=== PATIENT | male | born 1995 | race Caucasian/White ===

== ENCOUNTER 2017-10-15 12:55 | Emergency (ER) | payer OTHER ==
[2017-10-15 13:12] VITALS: BP 150/83; PULSE 60; TEMP 98.3; BMI 25.8
--- NOTE | 2017-10-15 14:54 | PDOC ---
History of Present Illness - General Chief Complaint: Injury Stated Complaint: LACERATION Time Seen by Provider: 10/15/17 14:45 History Source: Patient Exam Limitations: No Limitations - History of Present Illness Initial Comments: CHIEF COMPLAINT: 22 y/o male c/o left middle finger laceration. HISTORY OF PRESENT ILLNESS: The patient states he cut the tip of his left middle finger off with a saw at work. He states he is UTD on tetanus - he had the shot 3 years ago. He denies numbness/tingling and decreased ROM. Past History - Past Medical History Allergies/Adverse Reactions: Allergies Allergy/AdvReac Type Severity Reaction Status Date / Time No Known Allergies Allergy Verified 10/15/17 13:12 Home Medications: Ambulatory Orders NK [No Known Home Medication] 10/15/17 COPD: No Other medical history: DENIES MEDICAL HX - Suicide/Smoking/Psychosocial Hx Smoking History: Current every day smoker Number of Cigarettes Smoked Daily: 5 Information on smoking cessation initiated: No Hx Alcohol Use: Yes (OCCASIONALLY) Drug/Substance Use Hx: Yes (MARIJUANA) Review of Systems - Review of Systems Able to Perform ROS?: Yes Constitutional: No: Symptoms Reported Musculoskeletal: No: Symptoms Reported Integumentary: Yes: Other (laceration to tip of left middle finger) Neurological: No: Numbness, Tingling *Physical Exam - Vital Signs Last Vital Signs Temp Pulse Resp BP Pulse Ox 98.3 F 60 16 150/83 99 10/15/17 13:05 10/15/17 13:05 10/15/17 13:05 10/15/17 13:05 10/15/17 13:05 - Physical Exam Comments: very well appearing male in NAD or obvious discomfort. General Appearance: Yes: Nourished Extremity: positive: Normal Range of Motion Integumentary: positive: Other (Tip of left middle finger has been completely cut off; There is no bleeding currently. Skin has already started to heal over. No excess skin to suture. Patient has full flexion and extension of affected finger. Sensory intact in affected extremity.) Medical Decision Making - Medical Decision Making A/P: 22 y/o male with laceration to tip of left middle finger. No excess skin to suture. Cleaned the wound extensively and covered with non adherent dressing. Patient is UTD on tetanus. Instructed him to keep wound clean and covered, especially while working. No need for antibiotics as patient is a young healthy male. Instructed him to return to the ER with any worsening or concerning symptoms. The patient verbalizes understanding of all instructions, has no further questions and is awaiting discharge. *DC/Admit/Observation/Transfer Diagnosis at time of Disposition: Laceration of finger Qualifiers: Encounter type: initial encounter Finger: middle finger Damage to nail status: without damage Foreign body presence: without foreign body Laterality: left Qualified Code(s): S61.213A - Laceration without foreign body of left middle finger without damage to nail, initial encounter - Discharge Dispostion Disposition: HOME Condition at time of disposition: Good - Referrals - Patient Instructions Printed Discharge Instructions: Skin Wound Additional Instructions: Discharge Instructions: -Keep wound clean, dry and covered -Apply Bacitracin to wound for the next 3 days -Take Motrin if needed for pain -Return to the ER with any worsening or concerning symptoms. - Post Discharge Activity Forms/Work/School Notes: Back to Work
== END 2017-10-15 15:06 | disposition home or self-care (01) ==
LOC: JERFT 12:55
DX: S61.213A Laceration without foreign body of left middle finger without damage to nail, initial encounter (principal); W29.3XXA Contact with powered garden and outdoor hand tools and machinery, initial encounter; Y93.H3 Activity, building and construction; Y92.69 Other specified industrial and construction area as the place of occurrence of the external cause; Y99.0 Civilian activity done for income or pay; F17.210 Nicotine dependence, cigarettes, uncomplicated
CPT/HCPCS: 99281-25